=== PATIENT | female | born 1950 | race Caucasian/White ===

== ENCOUNTER 2017-03-04 13:27 | Observation (INO) | payer OTHER ==
[~2017-03-04] VITALS: Ht 156.2 cm; Wt 76.9 kg
[~2017-03-04 13:27] MED LIST: ASCORBIC ACID500 M3 PO; ASPIR 8181 M1 PO; BABY ASPIRIN81 M1 PO; BISOPROLOL-HCT1 EAC1 PO; COMBIVENT INH14.7 GM IH; CRANBERRY TABL1 EACH PO; PRENATAL TABLE1 EAC3 PO; PRENATAL1 EACH PO; PROVENTIL HFA6.7 GM IH; VITAMIN B12-FO1 EACH PO; VITAMIN D-32000 UNI2 PO; VITAMIN D-32000 UNIT PO; VITAMIN D32000 UNI1 PO
[2017-03-04 14:41] LABS: HEMATOCRIT 40.1 % (36.0-46.0); MCH 30.1 PG (29.0-34.0); MCHC 32.9 G/DL (30.0-36.0); MCV 91.6 FL (83-99); MEAN PLAT.VOLUME 9.5 uM^3 (9.5-12.4); PLATELET COUNT 225 K/uL (156-360); RBC DIS.WIDTH-CV 13.2 % (11.8-14.6); RBC DIS.WIDTH-SD 44.4 % (39-53); RED BLOOD COUNT 4.38 M/uL (3.80-5.20); WHITE BLOOD COUNT 9.2 K/uL (4.1-10.2)
[2017-03-04 14:50] LABS: CHLORIDE 107 mEq/L (99-109); SODIUM 141 mEq/L (136-147)
[2017-03-04 14:51] LABS: GLUCOSE 112 mg/dL (70-99)
[2017-03-04 14:53] LABS: ANION GAP 8 MEQ/L (2-14)
[2017-03-04 14:55] LABS: GFR ESTIMATE (CALCULATED) > 59 mL/min/
[2017-03-04 14:56] LABS: UREA NITROGEN (BUN) 17 mg/dL (9-23)
[2017-03-04 15:39] LABS: TROP-I INTERPRETATION NEGATIVE; TROPONIN-I 0.01 ng/mL (0.0-0.30)
[2017-03-04 16:03] LABS: D-DIMER ELISA 0.49 mg/L FEU (< 0.57)
[2017-03-04] MEDS ORDERED: RED YEAST RICE600 MG PO (16:17)
[2017-03-04] MEDS ORDERED: ADVAIR 250/501 DISK IH (16:17)
[2017-03-04] MEDS ORDERED: PROBIOTIC1 EAC1 PO (16:17)
[2017-03-04 17:31] VITALS: BP 106/60
[2017-03-04 17:32] VITALS: BP 145/61
[2017-03-04 17:34] VITALS: BP 135/62
[2017-03-04 19:26] LABS: TROP-I INTERPRETATION NEGATIVE; TROPONIN-I < 0.01 ng/mL (0.0-0.30)
[2017-03-04 20:00] VITALS: BP 131/60
[2017-03-05 00:10] VITALS: BP 120/59
[2017-03-05 01:14] LABS: TROP-I INTERPRETATION NEGATIVE; TROPONIN-I < 0.01 ng/mL (0.0-0.30)
[2017-03-05 04:07] VITALS: BP 142/71
[2017-03-05 06:04] LABS: HEMATOCRIT 36.8 % (36.0-46.0); MCH 30.8 PG (29.0-34.0); MCHC 33.2 G/DL (30.0-36.0); MCV 92.9 FL (83-99); MEAN PLAT.VOLUME 9.7 uM^3 (9.5-12.4); PLATELET COUNT 198 K/uL (156-360); RBC DIS.WIDTH-CV 13.4 % (11.8-14.6); RBC DIS.WIDTH-SD 45.6 % (39-53); RED BLOOD COUNT 3.96 M/uL (3.80-5.20); WHITE BLOOD COUNT 7.9 K/uL (4.1-10.2)
[2017-03-05 06:57] LABS: ANION GAP 9 MEQ/L (2-14); CHLORIDE 103 MEQ/L (99-109); GFR ESTIMATE (CALCULATED) > 59 mL/min/; GLUCOSE 122 mg/dL (70-99); HDL CHOLESTEROL 53 MG/DL (Desirable>=50); LDL CHOLESTEROL 93 mg/dL (Desirable<100); NON-HDL CHOLESTEROL 113 mg/dL (Desirable<160); POTASSIUM 3.6 MEQ/L (3.7-5.4); SAMPLE HEMOLYSIS CHECK 0; SAMPLE ICTERIC CHECK 0; SAMPLE LIPEMIA CHECK 0; SODIUM 137 MEQ/L (136-147); TOTAL CHOLESTEROL 166 mg/dL (Desirable<200); TRIGLYCERIDES 102 MG/DL (Normal: <150); UREA NITROGEN (BUN) 16 mg/dL (9-23)
[2017-03-05 07:20] VITALS: BP 132/63
[2017-03-05 07:26] LABS: Estimated Average Glucose 134 mg/dL (70-123); HEMOGLOBIN A1c (GLYCOHEMOGLOB) 6.3 % HGB (Below 5.7)
[2017-03-05 11:46] VITALS: BP 120/56
[2017-03-05] MEDS ORDERED: ATORVASTATIN CA40 MG PO (12:17)
[2017-03-05] MEDS ORDERED: AMLODIPINE BESYL5 MG PO (12:17)
== END 2017-03-05 14:08 | disposition home or self-care (01) ==
LOC: EME 13:27 → EDOF 16:16 → 5WEST 16:16
PROVIDERS: Hospitalist
DX: R42 Dizziness and giddiness (principal); R20.0 Anesthesia of skin; R94.31 Abnormal electrocardiogram [ECG] [EKG]; M79.602 Pain in left arm; I11.9 Hypertensive heart disease without heart failure; E78.5 Hyperlipidemia, unspecified; J45.909 Unspecified asthma, uncomplicated; F17.200 Nicotine dependence, unspecified, uncomplicated; E66.9 Obesity, unspecified; Z68.31 Body mass index [BMI] 31.0-31.9, adult
CPT/HCPCS: 70450; 70551; 71020; 80048; 80061; 83036; 84484; 85027; 85379; 93005; 94640; 94640 76; 99202; 99281; 99285; G0378

== ENCOUNTER 2018-02-23 11:33 | Emergency (ER) | payer OTHER ==
[~2018-02-23] VITALS: Ht 154.9 cm; Wt 74.0 kg
[~2018-02-23 11:33] MED LIST changes: +ADVAIR 250/501 DISK IH; +AMLODIPINE BESYL5 MG PO; +ATORVASTATIN CA40 MG PO; +PROBIOTIC1 EAC1 PO; +RED YEAST RICE600 MG PO
[2018-02-23] MEDS ORDERED: MOTRIN400 MG PO (14:00)
[2018-02-23] MEDS ORDERED: PERCOCET 5/31 TABLET PO (14:00)
[2018-02-23] MEDS ORDERED: MECLIZINE HCL25 MG PO (14:28)
[2018-02-23 15:24] VITALS: BP 137/60
== END 2018-02-23 15:34 | disposition home or self-care (01) ==
LOC: EME 11:33
DX: R42 Dizziness and giddiness (principal); R11.2 Nausea with vomiting, unspecified; R19.7 Diarrhea, unspecified; I10 Essential (primary) hypertension; J44.9 Chronic obstructive pulmonary disease, unspecified; F32.9 Major depressive disorder, single episode, unspecified; F17.200 Nicotine dependence, unspecified, uncomplicated; Z79.51 Long term (current) use of inhaled steroids; Z79.82 Long term (current) use of aspirin; Z86.73 Personal history of transient ischemic attack (TIA), and cerebral infarction without residual deficits; Z88.5 Allergy status to narcotic agent; Z88.8 Allergy status to other drugs, medicaments and biological substances
CPT/HCPCS: 70450; 99281; 99285; J2060; J2405; J7030